=== PATIENT | female | born 1960 | race American Indian/Alaskan Native ===

== ENCOUNTER 2018-10-29 21:29 | Emergency (ER) | payer MEDICAID ==
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
[2018-10-30] MEDS ORDERED: DECADRON ONE (02:24)
[2018-10-30] MEDS ORDERED: NORCO 5/325 ONE (02:24)
[2018-10-30] MEDS ORDERED: FLEXERIL ONE (02:24)
[2018-10-30] MEDS ORDERED: FLEXERIL PO ONE (02:25)
[2018-10-30] MEDS ORDERED: DECADRON IV ONE (02:25)
[2018-10-30] MEDS ORDERED: DECADRON PO ONE (02:33)
[2018-10-30] MEDS ORDERED: NORCO 5/325 PO ONE (02:33)
--- NOTE | 2018-10-30 03:42 | XRay Report ---
CHEST 2 VIEWS INDICATION / CLINICAL INFORMATION: cough. COMPARISON: None available. FINDINGS: SUPPORT DEVICES: None. HEART / MEDIASTINUM: No significant abnormality. LUNGS / PLEURA: Mild linear scarring/atelectasis within lingula and right middle lobe. No significant pulmonary or pleural abnormality. No pneumothorax. ADDITIONAL FINDINGS: No significant additional findings. IMPRESSION: 1. No acute findings. Signer Name: Ethan Fraser MD Signed: 10/30/2018 3:38 AM Workstation Name: [id number]
[2018-10-30 05:16] LABS: Bacteria,Urine 2+ /HPF (Negative); Bilirubin,Urine NEG (Negative); Blood,Urine NEG (Negative); Color,Urine Yellow (Yellow); Mucus,Urine FEW /HPF; Urobilinogen,Urine < 2.0 mg/dL (<2.0)
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
[2018-10-30 05:52] VITALS: BP 113/89
== END 2018-10-30 06:21 | disposition home or self-care (01) ==
LOC: ED 21:29
DX: N39.0 Urinary tract infection, site not specified (principal); M54.42 Lumbago with sciatica, left side; M54.41 Lumbago with sciatica, right side; G89.29 Other chronic pain; I10 Essential (primary) hypertension; E89.0 Postprocedural hypothyroidism; F17.200 Nicotine dependence, unspecified, uncomplicated; Z79.899 Other long term (current) drug therapy; Z90.710 Acquired absence of both cervix and uterus; Z91.010 Allergy to peanuts; Z88.5 Allergy status to narcotic agent
CPT/HCPCS: 71046; 72131; 81001; 96374; 99284; J1100